=== PATIENT | female | born 1990 | race Hispanic/Latino ===

== ENCOUNTER 2017-06-07 10:34 | Emergency (ER) | payer OTHER | END 2017-06-07 11:43 | disposition admitted as inpatient to this hospital (09) | LOC: M ED 10:34 | DX: O21.9 Vomiting of pregnancy, unspecified (principal); Z3A.38 38 weeks gestation of pregnancy; Z87.891 Personal history of nicotine dependence | CPT/HCPCS: 99281; J1200 ==

== ENCOUNTER 2017-06-07 11:39 | Outpatient (CLI) | payer OTHER ==
[2017-06-07 13:07] LABS: HEMATOCRIT 33.1 % (36.0-47.0); HEMOGLOBIN 11.1 g/dl (12.0-16.0); MEAN CORPUSCULAR HEMOGLOBIN 27.4 pg (27.0-33.0); MEAN CORPUSCULAR HGB CONC 33.5 g/dl (32.0-36.5); MEAN CORPUSCULAR VOLUME 81.7 fl (80.0-96.0); PLATELET COUNT, AUTOMATED 265 10^3/uL (150-450); RED BLOOD COUNT 4.05 10^6/uL (4.00-5.40); RED CELL DISTRIBUTION WIDTH 13.5 % (11.5-14.5); WHITE BLOOD COUNT 9.5 10^3/uL (4.0-10.0)
[2017-06-07 13:22] LABS: CREATININE,RANDOM URINE 82.5 MG/DL
[2017-06-07 13:22] LABS: TOTAL PROTEIN,RANDOM URINE 11.2 MG/DL (0.0-12.0)
[2017-06-07 13:29] LABS: ALT/SGPT 14 U/L (12-78); AST/SGOT 12 U/L (7-37); BILIRUBIN,TOTAL 0.4 MG/DL (0.2-1.0); CREATININE FOR GFR 0.41 MG/DL (0.55-1.30); GLOMERULAR FILTRATION RATE > 60.0 (>60); LDH LACTATE DEHYDROGENASE 169 U/L (84-246); URIC ACID 3.9 MG/DL (2.6-6.0)
[2017-06-07] MEDS ORDERED: diphenhydrAMINE INJ 50MG/ML VIAL (J1200) IM (14:45)
[2017-06-07] MEDS ORDERED: PROCHLORPERAZINE 10 MG/2 ML VIAL (J0780) IM (15:00)
[2017-06-07 15:05] LABS: AMPHETAMINES URINE REFLEX NEGATIVE (NEGATIVE); BARBITURATES URINE REFLEX NEGATIVE (NEGATIVE); BENZODIAZEPINES URINE REFLEX NEGATIVE (NEGATIVE); CANNABINOIDS URINE REFLEX NEGATIVE (NEGATIVE); COCAINE METABOLITE URINE REFLE NEGATIVE (NEGATIVE); METHADONE URINE REFLEX NEGATIVE (NEGATIVE); OPIATES URINE REFLEX NEGATIVE (NEGATIVE); PHENCYCLIDINE URINE REFLEX NEGATIVE (NEGATIVE)
[2017-06-07] MEDS: LR 1,000 ML IV (15:21)
[2017-06-07] MEDS: PROCHLORPERAZINE 10 MG/2 ML VIAL (J0780) IV (15:44)
[2017-06-07] MEDS: diphenhydrAMINE INJ 50MG/ML VIAL (J1200) IV (15:44)
[2017-06-07] MEDS: FAMOTIDINE IV BAG 20 MG in APPROPRIATE DILUENT 1 EA IV (15:44)
== END 2017-06-07 19:06 | disposition home or self-care (01) ==
LOC: M LDO 11:39
DX: O99.89 Other specified diseases and conditions complicating pregnancy, childbirth and the puerperium (principal); Z3A.37 37 weeks gestation of pregnancy; R51 Headache; R11.2 Nausea with vomiting, unspecified; Z87.891 Personal history of nicotine dependence; R09.81 Nasal congestion; Z91.040 Latex allergy status
CPT/HCPCS: 96365

== ENCOUNTER 2017-06-18 09:44 | Inpatient (IN) | payer OTHER ==
[2017-06-18] MEDS: LR 1,000 ML IV (11:48)
[2017-06-18 11:54] LABS: HEMATOCRIT 33.9 % (36.0-47.0); HEMOGLOBIN 11.3 g/dl (12.0-16.0); MEAN CORPUSCULAR HEMOGLOBIN 27.1 pg (27.0-33.0); MEAN CORPUSCULAR HGB CONC 33.3 g/dl (32.0-36.5); MEAN CORPUSCULAR VOLUME 81.3 fl (80.0-96.0); PLATELET COUNT, AUTOMATED 241 10^3/uL (150-450); RED BLOOD COUNT 4.17 10^6/uL (4.00-5.40); RED CELL DISTRIBUTION WIDTH 13.9 % (11.5-14.5); WHITE BLOOD COUNT 8.3 10^3/uL (4.0-10.0)
[2017-06-18] MEDS: LACTATED RINGER'S 1000 ML IV (18:44)
[2017-06-18] MEDS ORDERED: LR 1,000 ML IV (18:49)
[2017-06-18] MEDS ORDERED: FENTANYL 2MCG/ML ROPIVACAINE 0.2% IN 0.9% NACL 200ML IVBAG As Ordered (19:11)
[2017-06-18] MEDS ORDERED: NALOXONE INJ 0.4 MG/1 ML VIAL (J2310) IV (20:27)
[2017-06-18] MEDS ORDERED: EPIDURAL COMMENT XX (20:27)
[2017-06-18] MEDS ORDERED: EPIDURAL/PCA KEYS XX (20:27)
[2017-06-18] MEDS ORDERED: REFRIGERATOR IV KEYS XX (20:27)
[2017-06-18] MEDS ORDERED: FENTANYL/ROPIVACAINE/NACL BAG 200 ML EPIDURAL (20:27)
[2017-06-18] MEDS ORDERED: ePHEDrine SULFATE 25 MG/5 ML(5MG/ML) SYRINGE IV (20:27)
[2017-06-18] MEDS ORDERED: LACTATED RINGER'S 1000 ML IV (20:27)
[2017-06-18] MEDS ORDERED: diphenhydrAMINE INJ 50MG/ML VIAL (J1200) IV (20:27)
[2017-06-18] MEDS: OXYTOCIN DRIP 30 UNITS in APPROPRIATE DILUENT 1 EA IV (21:05)
[2017-06-19] MEDS: ONDANSETRON 4MG/2ML VIAL (J2405) IV (00:07)
[2017-06-19] MEDS: OXYTOCIN DRIP 30 UNITS in APPROPRIATE DILUENT 1 EA IV (05:54)
[2017-06-19] MEDS ORDERED: RHOGAM 300 MCG (1500 IU) INJ (J2790) IM (06:00)
[2017-06-19] MEDS ORDERED: MEASLES,MUMPS,RUBELLA VACCINE INJ (MMR-II) (90707) SC (06:00)
[2017-06-19] MEDS ORDERED: METOCLOPRAMIDE INJ 10MG/2ML VIAL (J2765) IV (06:00)
[2017-06-19] MEDS ORDERED: DIBUCAINE 1% OINTMENT 30GM TOP (06:00)
[2017-06-19] MEDS: DOCUSATE SODIUM 100 MG CAP PO ×2 (09:00→20:34)
[2017-06-19] MEDS: PRENATAL VITAMINS CHEWABLE TABLET PO (09:00)
[2017-06-19] MEDS: IBUPROFEN 800 MG TAB PO ×2 (10:44→18:34)
[2017-06-19] MEDS: ACETAMINOPHEN TAB 650MG DOSE (2X325MG) PO ×2 (12:58→20:34)
[2017-06-20] MEDS: IBUPROFEN 800 MG TAB PO ×3 (03:04→23:15)
[2017-06-20] MEDS: DOCUSATE SODIUM 100 MG CAP PO ×2 (08:27→23:15)
[2017-06-20] MEDS: ACETAMINOPHEN TAB 650MG DOSE (2X325MG) PO (08:28)
[2017-06-20] MEDS: PRENATAL VITAMINS CHEWABLE TABLET PO (08:28)
[2017-06-21] MEDS: PRENATAL VITAMINS CHEWABLE TABLET PO (07:39)
[2017-06-21] MEDS: DOCUSATE SODIUM 100 MG CAP PO (07:39)
[2017-06-21] MEDS: IBUPROFEN 800 MG TAB PO (07:40)
== END 2017-06-21 13:50 | disposition home or self-care (01) | DRG 775 ==
LOC: M LDO 09:44 → M OBS 06-19 08:46 → M LDI 10:41
PROVIDERS: Obstetrics & Gynecology
PROC: 10E0XZZ Delivery of Products of Conception, External Approach (ICD-10-PCS; principal; 2017-06-19)
PROC: 0HQ9XZZ Repair Perineum Skin, External Approach (ICD-10-PCS; 2017-06-19)
DX: O69.82X0 Labor and delivery complicated by other cord entanglement, without compression, not applicable or unspecified (principal); Z37.0 Single live birth; Z3A.39 39 weeks gestation of pregnancy; O70.0 First degree perineal laceration during delivery

== ENCOUNTER → 2018-01-01 | Outpatient (REF) | payer OTHER ==
[2018-01-01 22:31] LABS: APPEARANCE, URINE HAZY (CLEAR); BACTERIA, URINE AUTO 1+ (NEGATIVE); BILIRUBIN, URINE AUTO NEGATIVE (NEGATIVE); BLOOD, URINE BLOOD NEGATIVE (NEGATIVE); COLOR, URINE YELLOW (YELLOW); GLUCOSE, URINE (UA) AUTO NEGATIVE (NEGATIVE); KETONE, URINE AUTO NEGATIVE (NEGATIVE); LEUKOCYTE ESTERASE, URINE AUTO 3+ (NEGATIVE); MUCUS, URINE SMALL (NEGATIVE); NITRITE, URINE AUTO NEGATIVE (NEGATIVE); PROTEIN, URINE AUTO NEGATIVE (NEGATIVE); RBC, URINE AUTO 5 /HPF (0-3); SPECIFIC GRAVITY URINE AUTO 1.017 (1.002-1.035); SQUAMOUS EPITHELIAL CELL UR AU 4 /HPF (0-6); UROBILINOGEN, URINE AUTO 0.2 mg/dL (0.0-2.0); WBC, URINE AUTO 4 /HPF (0-3)
[2018-01-01 22:42] LABS: CONTROL LINE UCG INT CTR LINE PRESENT; URINE PREG TEST NEGATIVE (NEGATIVE)
== END ==
LOC: M LAB REF 21:49
DX: N39.0 Urinary tract infection, site not specified (principal)

== ENCOUNTER → 2018-02-09 | Outpatient (REF) | payer OTHER ==
[2018-02-09 19:49] LABS: APPEARANCE, URINE CLEAR (CLEAR); BACTERIA, URINE AUTO 1+ (NEGATIVE); BILIRUBIN, URINE AUTO NEGATIVE (NEGATIVE); BLOOD, URINE BLOOD NEGATIVE (NEGATIVE); COLOR, URINE YELLOW (YELLOW); GLUCOSE, URINE (UA) AUTO NEGATIVE (NEGATIVE); KETONE, URINE AUTO TRACE mg/dL (NEGATIVE); LEUKOCYTE ESTERASE, URINE AUTO NEGATIVE (NEGATIVE); MUCUS, URINE SMALL (NEGATIVE); NITRITE, URINE AUTO NEGATIVE (NEGATIVE); PROTEIN, URINE AUTO NEGATIVE (NEGATIVE); RBC, URINE AUTO 1 /HPF (0-3); SPECIFIC GRAVITY URINE AUTO 1.019 (1.002-1.035); SQUAMOUS EPITHELIAL CELL UR AU 1 /HPF (0-6); UROBILINOGEN, URINE AUTO 0.2 mg/dL (0.0-2.0); WBC, URINE AUTO 1 /HPF (0-3)
== END ==
LOC: M LAB REF 19:10
DX: N39.0 Urinary tract infection, site not specified (principal)

== ENCOUNTER → 2018-12-31 | Outpatient (REF) | payer OTHER ==
[~2018-12-31] MED LIST: COLA100C5 PO; IBUP-1114 PO; MAPA500T2 PO; NUPE1OIN2 TOP; PRENTAB9 PO; SALI0.6528; TUMS500C PO
[2018-12-31 22:10] LABS: APPEARANCE, URINE CLEAR (CLEAR); BACTERIA, URINE AUTO NEGATIVE (NEGATIVE); BILIRUBIN, URINE AUTO NEGATIVE (NEGATIVE); BLOOD, URINE BLOOD NEGATIVE (NEGATIVE); COLOR, URINE YELLOW (YELLOW); GLUCOSE, URINE (UA) AUTO NEGATIVE (NEGATIVE); KETONE, URINE AUTO NEGATIVE (NEGATIVE); LEUKOCYTE ESTERASE, URINE AUTO NEGATIVE (NEGATIVE); MUCUS, URINE SMALL (NEGATIVE); NITRITE, URINE AUTO NEGATIVE (NEGATIVE); PROTEIN, URINE AUTO NEGATIVE (NEGATIVE); RBC, URINE AUTO 0 /HPF (0-3); SPECIFIC GRAVITY URINE AUTO 1.023 (1.002-1.035); SQUAMOUS EPITHELIAL CELL UR AU 2 /HPF (0-6); UROBILINOGEN, URINE AUTO 0.2 mg/dL (0.0-2.0); WBC, URINE AUTO 0 /HPF (0-3)
== END ==
LOC: M LAB REF 08:15
PROVIDERS: ATTEND Physician Assistant Medical
DX: N39.0 Urinary tract infection, site not specified (principal)

== ENCOUNTER → 2019-01-24 | Outpatient (CLI) | payer OTHER ==
--- NOTE | 2019-01-24 16:31 | REP ---
ULTRASOUND LEFT BREAST: HISTORY: Palpable lump 2-o'clock left breast. Real-time sonographic evaluation of the left breast performed between 12-o'clock and 3-o'clock for a palpable lump at 2-o'clock. There is dense fibroglandular tissue noted sonographically. At the 1-o'clock position, there is a small hypoechoic nodule present. This measures 6 x 4 x 5 mm and is approximately 3 to 4 cm from the nipple. No other cystic or solid nodule is seen. IMPRESSION: ACR 3 probably benign. Hypoechoic nodule at the 1-o'clock position of the left breast most likely represents a fibroadenoma, measuring 6 mm in maximum diameter. Recommend followup ultrasound in 6 months. Alternatively, if the patient desires a definitive diagnosis at this time, ultrasound guided biopsy could be performed. Electronically Signed by Ryan Anderson MD 01/24/2019 05:55 P
== END ==
LOC: M RAD 15:24
PROVIDERS: ATTEND Family Medicine
DX: N63.21 Unspecified lump in the left breast, upper outer quadrant (principal)

== ENCOUNTER → 2019-04-19 | Outpatient (CLI) | payer OTHER ==
[~2019-04-19] MED LIST changes: +LIDOCAINE 1% MDV 20ML VIAL As Ordered ONE
[2019-04-19 12:23] VITALS: BP 134/66
--- NOTE | 2019-04-19 17:21 | REP ---
Ultrasound-guided left breast biopsy. The procedure was performed by MIR Elizondo, under the direct supervision of Dr. Anderson. The risks and benefits of the procedure were explained to the patient and informed consent was obtained both verbally and written. Directly prior to the start of the procedure, a formal timeout was completed in the procedure room. The left breast mass was localized using ultrasound guidance. The skin was prepped and draped in a sterile fashion. 20 ml 1% lidocaine 10 mg/ml was used as a local anesthetic. Using ultrasound guidance a 13-gauge suction assisted Mammotome needle was inserted and 6 core biopsy samples were obtained. The patient tolerated the procedure well and there were no immediate complications. After the appropriate monitored convalescence the patient was discharged from the department. Reviewed by MIR Cornelius 04/19/2019 04:15 P Electronically Signed by Ryan Anderson MD 04/19/2019 05:10 P
== END ==
LOC: M IRPRO 11:33
PROVIDERS: ATTEND Nurse Practitioner
DX: N60.12 Diffuse cystic mastopathy of left breast (principal)

== ENCOUNTER → 2019-06-26 | Outpatient (REF) | payer OTHER ==
[~2019-06-26] MED LIST changes: -LIDOCAINE 1% MDV 20ML VIAL As Ordered ONE
[2019-06-26 19:26] LABS: APPEARANCE, URINE HAZY (CLEAR); BACTERIA, URINE AUTO NEGATIVE (NEGATIVE); BILIRUBIN, URINE AUTO NEGATIVE (NEGATIVE); BLOOD, URINE BLOOD NEGATIVE (NEGATIVE); COLOR, URINE YELLOW (YELLOW); GLUCOSE, URINE (UA) AUTO NEGATIVE (NEGATIVE); KETONE, URINE AUTO NEGATIVE (NEGATIVE); LEUKOCYTE ESTERASE, URINE AUTO NEGATIVE (NEGATIVE); MUCUS, URINE SMALL (NEGATIVE); NITRITE, URINE AUTO NEGATIVE (NEGATIVE); PROTEIN, URINE AUTO NEGATIVE (NEGATIVE); RBC, URINE AUTO 0 /HPF (0-3); SPECIFIC GRAVITY URINE AUTO 1.025 (1.002-1.035); SQUAMOUS EPITHELIAL CELL UR AU 1 /HPF (0-6); UROBILINOGEN, URINE AUTO 0.2 mg/dL (0.0-2.0); WBC, URINE AUTO 1 /HPF (0-3)
== END ==
LOC: M LAB REF 18:41
PROVIDERS: ATTEND Physician Assistant
DX: R30.0 Dysuria (principal)

== ENCOUNTER → 2019-12-24 | Outpatient (REF) | payer OTHER ==
[2020-02-11 10:58] LABS: APPEARANCE, URINE HAZY (CLEAR); BACTERIA, URINE AUTO 1+ (NEGATIVE); BILIRUBIN, URINE AUTO NEGATIVE (NEGATIVE); BLOOD, URINE BLOOD NEGATIVE (NEGATIVE); COLOR, URINE YELLOW (YELLOW); GLUCOSE, URINE (UA) AUTO NEGATIVE (NEGATIVE); KETONE, URINE AUTO NEGATIVE (NEGATIVE); LEUKOCYTE ESTERASE, URINE AUTO 1+ (NEGATIVE); MUCUS, URINE SMALL (NEGATIVE); NITRITE, URINE AUTO NEGATIVE (NEGATIVE); PROTEIN, URINE AUTO NEGATIVE (NEGATIVE); RBC, URINE AUTO 1 /HPF (0-3); SPECIFIC GRAVITY URINE AUTO 1.023 (1.002-1.035); SQUAMOUS EPITHELIAL CELL UR AU 10 /HPF (0-6); UROBILINOGEN, URINE AUTO 0.2 mg/dL (0.0-2.0); WBC, URINE AUTO 1 /HPF (0-3)
== END ==
LOC: M LAB REF 10:20
PROVIDERS: ATTEND Physician Assistant Medical
DX: N39.0 Urinary tract infection, site not specified (principal)

== ENCOUNTER 2020-04-06 23:01 | Emergency (ER) | payer OTHER ==
[~2020-04-06] VITALS: Ht 162.6 cm; Wt 83.4 kg
[2020-04-07] MEDS ORDERED: ANUSOL HC CREAM 30GM TOP STA (00:20)
[2020-04-07] MEDS ORDERED: ANUSOL HC 25MG SUPP PR STA (00:20)
[2020-04-07] MEDS ORDERED: HYDR-3713 PO (00:25)
[2020-04-07] MEDS ORDERED: ANUS2.5C2 TOP (00:25)
[2020-04-07] MEDS ORDERED: ANUS25SU PR (00:25)
[2020-04-07] MEDS ORDERED: NORCO 5/325MG TABLET (BULK FOR ED) PO ONE (00:30)
[2020-04-07 00:54] VITALS: BP 122/77
== END 2020-04-07 01:07 | disposition home or self-care (01) ==
LOC: M ED 23:01
DX: K64.8 Other hemorrhoids (principal); Z79.899 Other long term (current) drug therapy; Z91.040 Latex allergy status